=== PATIENT | male | born 1955 | race Caucasian/White ===

== ENCOUNTER → 2017-09-25 | Outpatient (CLI) | payer OTHER ==
[~2017-09-25] MED LIST: AMLO10 PO; ASPI325 PO; ASPI81CH PO; ATOR80 PO; CEPH500 PO; CILO50 PO; CLOP75; CLOP75 PO; Cilostazol50 MG PO; Clindamycin HC300 MG PO; FENO145 PO; FENO160 PO; FURO20 PO; GABA400 PO; GLIP10 PO; HYDR-86; Hytrin2 MG; IBUP400 PO; INSDET100 SC; INSUASPI SC; INSULANPEN; INSULANPEN SC; LISI5 PO; LOPE2C PO; METF500 PO; METO25 PO; OMEP20ER; OXYACE5T; OXYACE5T PO; POTCHL10ER PO; SACC250C PO; SERT50; SERT50 PO
== END | disposition home or self-care (01) ==
LOC: LAB SHORT 11:04 → LAB 11:04
DX: E11.59 Type 2 diabetes mellitus with other circulatory complications (principal); E11.621 Type 2 diabetes mellitus with foot ulcer; L97.509 Non-pressure chronic ulcer of other part of unspecified foot with unspecified severity
CPT/HCPCS: 87070; 87075; 87077; 87147; 87186; 87205

== ENCOUNTER 2018-02-13 04:18 | Inpatient (IN) | payer SELFPAY ==
[~2018-02-13] VITALS: Ht 157.5 cm; Wt 113.4 kg
[~2018-02-13 04:18] MED LIST changes: +Clonazepam0.5 MG PO; -Hytrin2 MG; +Hytrin2 MG PO; +LEVEMIR FL100 UNIT/1 SC; +METF500C PO; -METO25 PO; +METO50 PO; -SERT50
[2018-02-13 04:40] LABS: Source, Urine Catheter
[2018-02-13 04:44] LABS: Hematocrit 47.8 % (37.0-53.0); Hemoglobin 12.8 g/dL (13.5-17.5); Mean Corpuscular HGB 24.1 pg (26.0-34.0); Mean Corpuscular HGB Conc 26.8 g/dL (31.5-36.5); Mean Corpuscular Volume 90 fL (80-100); Mean Platelet Volume 8.9 fL (9.1-12.4); NRBC ABSOLUTE 0.21 K/mm3 (0.00-0.02); Platelet Count 363 K/mm3 (150-400); RDW Coefficient Variation 17.3 % (11.7-14.2); RDW Standard Deviation 57.6 fL (35.1-46.3); Red Blood Cell Count 5.31 M/mm3 (4.30-5.90); White Blood Cell Count 20.22 K/mm3 (4.00-11.30)
[2018-02-13 04:45] LABS: Blood, Urine 3+ (Neg); Glucose Qualitative, Urine Neg (Neg); Ketones, Urine Neg (Neg); Leukocyte Esterase, Urine 1+ (Neg); Nitrite, Urine Neg (Neg); Protein, Urine 3+ (Neg); Specific Gravity, Urine 1.025 (1.003-1.022); Urobilinogen, Urine NORM (Normal)
[2018-02-13 04:46] LABS: Appearance, Urine Turbid (Clear); Bilirubin, Urine 1+ (Neg); Color, Urine Yellow (P-Yellow)
[2018-02-13 04:56] LABS: International Normalized Ratio 1.25; Prothrombin Time Results 12.7 Sec (9.7-11.5)
[2018-02-13 04:58] LABS: Bacteria Few /hpf; Red Blood Cells, Urine 0-2 /hpf (0-2); Spermatozoa Many /hpf; Squamous Epithelial Cells Not Seen /hpf (Few)
[2018-02-13 05:00] LABS: Calcium, Ionized (POC) 1.07 mmol/L (1.10-1.46); Chloride (POC) 107 mmol/L (98-108); Creatinine (POC) 2.9 mg/dL (0.8-1.3); Glucose (ISTAT POC) 233 mg/dL (70-99); Hemoglobin (POC) 14.6 g/dL (13.5-17.5); Potassium (POC) 5.6 mmol/L (3.5-5.5); Sodium (POC) 137 mmol/L (135-148); Total CO2 (POC) 19 mmol/L (21-32)
[2018-02-13 05:07] LABS: Albumin, Blood 2.8 g/dL (3.4-5.0); Albumin/Globulin Ratio 0.8 (0.8-1.8); Bilirubin, Total 0.4 mg/dL (0.1-1.0); Bun/Creatinine Ratio 18.7 (12.0-20.0); Creatinine, Blood 2.89 mg/dL (0.60-1.20); Globulin, Blood 3.5 g/dL (2.2-4.0); Potassium, Blood 5.9 mmol/L (3.5-5.5); Total Protein, Blood 6.3 g/dL (6.4-8.2)
[2018-02-13 05:11] LABS: PCO2 Arterial 63.6 mmHg (35-45); PO2 Arterial 77.1 mmHg (80-100); pH Blood Arterial 6.95 (7.35-7.45)
[2018-02-13 05:14] LABS: BAND PERCENT MAN 1 % (0-8); BASOPHILS PERCENT MAN 1 % (0-2); EOSINOPHILS PERCENT MAN 2 % (0-6); LYMPHOCYTES ABSOLUTE MAN 1.81 K/mm3 (0.84-5.20); LYMPHOCYTES PERCENT MAN 9 % (21-46); METAMYELOCYTE PERCENT MAN 2 % (0-0); MONOCYTES ABSOLUTE MAN 1.01 K/mm3 (0.16-1.47); MONOCYTES PERCENT MAN 5 % (4-13); MYELOCYTE PERCENT MAN 2 % (0-0); NEUTROPHILS ABSOLUTE MAN 15.97 K/mm3 (1.96-9.15); SEG NEUTROPHILS PERCENT MAN 78 % (41-73); TOTAL CELLS COUNTED 100
[2018-02-13 05:17] LABS: Troponin I 0.645 ng/mL (0.000-0.040)
== END 2018-02-13 17:07 | DRG 296 ==
LOC: ER 04:18 → ICUW 05:52 → ICUE 06:01
PROVIDERS: Emergency Medicine
PROC: 5A12012 Performance of Cardiac Output, Single, Manual (ICD-10-PCS; principal; 2018-02-13)
PROC: 06HM33Z Insertion of Infusion Device into Right Femoral Vein, Percutaneous Approach (ICD-10-PCS; 2018-02-13)
PROC: 3E043XZ Introduction of Vasopressor into Central Vein, Percutaneous Approach (ICD-10-PCS; 2018-02-13)
DX: I46.9 Cardiac arrest, cause unspecified (principal); J18.9 Pneumonia, unspecified organism; N17.9 Acute kidney failure, unspecified; E87.2 Acidosis; E87.4 Mixed disorder of acid-base balance; Z79.82 Long term (current) use of aspirin; Z79.4 Long term (current) use of insulin; E11.51 Type 2 diabetes mellitus with diabetic peripheral angiopathy without gangrene; Z89.421 Acquired absence of other right toe(s); Z87.891 Personal history of nicotine dependence; E87.5 Hyperkalemia; K21.9 Gastro-esophageal reflux disease without esophagitis; E78.5 Hyperlipidemia, unspecified; I45.10 Unspecified right bundle-branch block; Z66 Do not resuscitate; I50.9 Heart failure, unspecified; I11.0 Hypertensive heart disease with heart failure; S20.219A Contusion of unspecified front wall of thorax, initial encounter; D72.829 Elevated white blood cell count, unspecified; I25.10 Atherosclerotic heart disease of native coronary artery without angina pectoris
CPT/HCPCS: 31720; 36556; 36600; 51702; 80047; 80053; 81001; 82803; 84484; 85014; 85025; 85610; 87086; 92950; 93005; 93010; 94002; 96361; 96374; 96375; 99291-25; 99292; C1751; J0171; J0282; J0461; J1250; J2001; J7060; J7120